=== PATIENT | male | born 1975 | race Two or more races ===

== ENCOUNTER 2017-12-17 22:28 | Emergency (ER) | payer MEDICAID ==
[~2017-12-17] VITALS: Ht 180.3 cm; Wt 127.0 kg
[2017-12-17 23:08] VITALS: BP 135/96
[2017-12-18] MEDS ORDERED: LIDOCAINE 1% HCL (LOCAL ANESTH.) INJ 20ML MDV IJ ONE (02:30)
[2017-12-18] MEDS ORDERED: TRIAMCINOLONE 40MG/ML 1ML VIAL IM ONE (02:30)
== END 2017-12-18 05:24 | disposition home or self-care (01) ==
LOC: ER 22:32
DX: M62.838 Other muscle spasm (principal)
CPT/HCPCS: 20552; 72125; 93005; 96372; 99284; J2001; J3301

== ENCOUNTER 2018-02-07 18:45 | Emergency (ER) | payer MEDICAID ==
[~2018-02-07] VITALS: Ht 180.3 cm; Wt 122.5 kg
[2018-02-07 18:59] VITALS: BP 125/78
== END 2018-02-07 22:42 | disposition home or self-care (01) ==
LOC: ER 18:45
DX: S90.31XA Contusion of right foot, initial encounter (principal); M62.838 Other muscle spasm; M54.5 Low back pain; X58.XXXA Exposure to other specified factors, initial encounter; Y93.89 Activity, other specified; Y92.89 Other specified places as the place of occurrence of the external cause; Y99.8 Other external cause status
CPT/HCPCS: 72100; 73562; 73590

== ENCOUNTER 2018-03-07 21:13 | Inpatient (IN) | payer MEDICAID ==
[~2018-03-07] VITALS: Ht 180.3 cm; Wt 122.0 kg
[2018-03-07 22:07] LABS: Basophils # (auto) 0.1 uL; Basophils % (auto) 0.9 % (0.0-2.0); Eosinophils # (auto) 0.1 uL; Eosinophils % (auto) 0.6 % (0.0-7.0); Hematocrit 41.3 % (41.0-53.0); Hemoglobin 14.3 g/dL (13.5-17.5); Lymphocytes # (auto) 2.5 uL; Lymphocytes % (auto) 22.1 % (10.0-50.0); Mean Corpuscular Hemoglobin 30.4 pg (28.0-32.0); Mean Corpuscular Hgb Conc. 34.6 g/dL (32.0-36.0); Mean Corpuscular Volume 87.9 fL (80.0-100.0); Monocytes # (auto) 0.8 uL; Monocytes % (auto) 6.8 % (0.0-12.0); Neutrophils # (auto) 7.9 uL; Neutrophils % (auto) 69.6 % (37.0-80.0); Nucleated Red Blood Cells % 0.1 %; Platelet Count (auto) 336 10^3/uL (140-450); White Blood Cell 11.4 10^3/uL (4.4-10.8)
[2018-03-07 22:37] LABS: Alanine Aminotransferase 27 U/L (16-61); Albumin 3.8 g/dL (3.4-5.0); Alkaline Phosphatase 122 U/L (45-117); Anion Gap 9 (5-15); Aspartate Aminotransferase 15 U/L (15-37); BUN/Creatinine Ratio 22.4; Bilirubin, Total 0.4 mg/dL (0.2-1.0); Blood Urea Nitrogen 22 mg/dL (7-18); Calcium 8.6 mg/dL (8.5-10.1); Carbon Dioxide 25 mmol/L (21-32); Chloride 105 mmol/L (98-107); GFR African American 108 mL/min; GFR Non-African American 89 mL/min; Glucose 167 mg/dL (74-106); Potassium 3.6 mmol/L (3.5-5.1); Sodium 139 mmol/L (136-145); Total Protein 7.7 g/dL (6.4-8.2)
[2018-03-07] MEDS ORDERED: VANCOMYCIN 1GM/250ML 250 ML IV ONE ×2 (23:30)
[2018-03-07] MEDS ORDERED: cefTRIAXone 1GM/10ml IVPUSH 10 ML IV ONE ×2 (23:30)
[2018-03-07] MEDS ORDERED: NALBUPHINE HCL 10 MG/1ml INJECTION IV ONE (23:30)
[2018-03-07] MEDS ORDERED: ONDANSETRON HCL 4 MG/2 ML VIAL IV ONE (23:30)
[2018-03-08] MEDS ORDERED: ONDANSETRON HCL 4 MG/2 ML VIAL IV PRN (05:45)
[2018-03-08] MEDS ORDERED: ACETAMINOPHEN 325 MG TAB PO PRN (05:45)
[2018-03-08] MEDS ORDERED: TEMAZEPAM 15 MG CAP PO PRN (05:45)
[2018-03-08] MEDS ORDERED: HYDROcodone-ACET 5/325MG TAB PO PRN (05:45)
[2018-03-08] MEDS ORDERED: MORPHINE SULFATE 8mg/ml INJ SDV IV PRN (05:45)
[2018-03-08] MEDS: CLINDAMYCIN 600MG IV 50 ML IV SCH ×2 (06:30→15:46)
[2018-03-08 08:30] VITALS: BP 128/74
[2018-03-08] MEDS ORDERED: cefTRIAXone 1GM/10ml IVPUSH 10 ML IV SCH (09:00)
[2018-03-08 09:30] VITALS: BP 128/74
[2018-03-08] MEDS ORDERED: FAMOTIDINE 20 MG TAB PO SCH (10:00)
[2018-03-08] MEDS ORDERED: ENOXAPARIN SOD 40 MG/0.4 ML SYRINGE SC SCH (10:00)
[2018-03-08 12:23] VITALS: BP 136/78
[2018-03-08 13:27] LABS: Basophils # (auto) 0 uL; Basophils % (auto) 0.6 % (0.0-2.0); Eosinophils # (auto) 0.1 uL; Eosinophils % (auto) 0.8 % (0.0-7.0); Hematocrit 39.6 % (41.0-53.0); Hemoglobin 13.3 g/dL (13.5-17.5); Lymphocytes # (auto) 2.4 uL; Lymphocytes % (auto) 31.2 % (10.0-50.0); Mean Corpuscular Hemoglobin 29.7 pg (28.0-32.0); Mean Corpuscular Hgb Conc. 33.6 g/dL (32.0-36.0); Mean Corpuscular Volume 88.2 fL (80.0-100.0); Monocytes # (auto) 0.6 uL; Monocytes % (auto) 8.3 % (0.0-12.0); Neutrophils # (auto) 4.5 uL; Neutrophils % (auto) 59.1 % (37.0-80.0); Nucleated Red Blood Cells % 0.1 %; Platelet Count (auto) 319 10^3/uL (140-450); Red Blood Cells 4.49 10^6/uL (4.5-5.90); Red Cell Distribution Width 13.2 % (11.8-14.3); White Blood Cell 7.6 10^3/uL (4.4-10.8)
[2018-03-08] MEDS ORDERED: LEVO500T21 PO (15:59)
[2018-03-08] MEDS ORDERED: CLIN1CAP4 PO (15:59)
[2018-03-08 16:37] VITALS: BP 138/88
[2018-03-08 18:13] VITALS: BP 138/88
== END 2018-03-08 19:15 | disposition home or self-care (01) | DRG 383 ==
LOC: ER 21:13 → OVERFLOW 21:14 → WEST WING 03-08 08:27
PROVIDERS: ADMIT Nurse Practitioner; ATTEND Internal Medicine
DX: L03.115 Cellulitis of right lower limb (principal); E66.9 Obesity, unspecified; F12.90 Cannabis use, unspecified, uncomplicated; Z68.37 Body mass index [BMI] 37.0-37.9, adult; R73.9 Hyperglycemia, unspecified; L03.125 Acute lymphangitis of right lower limb
CPT/HCPCS: 36415; 73700; 80053; 82962; 83036; 83605; 83880; 84484; 85025; 87040; 93971; 96365; 96375; J2405; J3490

== ENCOUNTER 2018-09-28 20:32 | Emergency (ER) | payer MEDICAID ==
[~2018-09-28] VITALS: Ht 180.3 cm; Wt 117.9 kg
[~2018-09-28 20:32] MED LIST: CLIN1CAP4 PO; LEVO500T21 PO
[2018-09-28 21:12] VITALS: BP 159/78
[2018-09-28] MEDS ORDERED: cefTRIAXone SOD 1,000 MG VL IM ONE (23:45)
[2018-09-28] MEDS ORDERED: LIDOCAINE HCL 2 % INJ 2ML MPF NEB ONE (23:45)
[2018-09-28] MEDS ORDERED: LIDOCAINE 2% (LOCAL ANESTH.) PF 5ml SDV ONE (23:52)
== END 2018-09-29 00:35 | disposition home or self-care (01) ==
LOC: ER 20:32
DX: L60.0 Ingrowing nail (principal); F12.10 Cannabis abuse, uncomplicated; Z79.2 Long term (current) use of antibiotics
CPT/HCPCS: 11730; 73620; 96372; 99283; J0696; J2001

== ENCOUNTER 2019-03-06 14:07 | Emergency (ER) | payer MEDICAID ==
[~2019-03-06] VITALS: Ht 180.3 cm; Wt 122.5 kg
[2019-03-06 14:28] VITALS: BP 128/83
[2019-03-06 15:50] LABS: Albumin 3.7 g/dL (3.4-5.0); Calcium 8.7 mg/dL (8.5-10.1); Potassium 4.1 mmol/L (3.5-5.1)
[2019-03-06 15:54] LABS: BUN/Creatinine Ratio 14.9; Bilirubin, Total 0.6 mg/dL (0.2-1.0); Total Protein 7.6 g/dL (6.4-8.2)
[2019-03-06 16:29] LABS: Basophils # (auto) 0 uL; Basophils % (auto) 0.5 % (0.0-2.0); Eosinophils # (auto) 0.2 uL; Hematocrit 46.6 % (41.0-53.0); Lymphocytes % (auto) 34.1 % (10.0-50.0); Mean Corpuscular Hgb Conc. 34.4 g/dL (32.0-36.0); Monocytes # (auto) 0.5 uL; Monocytes % (auto) 5.9 % (0.0-12.0); Neutrophils # (auto) 5.1 uL; Neutrophils % (auto) 57.5 % (37.0-80.0); Nucleated Red Blood Cells % 0.2 %; Platelet Count (auto) 380 10^3/uL (140-450); Red Blood Cells 5.36 10^6/uL (4.5-5.90); Red Cell Distribution Width 12.9 % (11.8-14.3); White Blood Cell 8.9 10^3/uL (4.4-10.8)
[2019-03-06] MEDS ORDERED: KETOROLAC TROMETH 60MG/2ML VIAL IM ONE (16:30)
== END 2019-03-06 17:11 | disposition home or self-care (01) ==
LOC: ER 14:13
DX: M79.662 Pain in left lower leg (principal); M79.661 Pain in right lower leg; E11.9 Type 2 diabetes mellitus without complications; E78.5 Hyperlipidemia, unspecified; F12.90 Cannabis use, unspecified, uncomplicated; Z79.899 Other long term (current) drug therapy
CPT/HCPCS: 36415; 80053; 85025; 93971; 96372; 99284; J1885